=== PATIENT | female | born 1995 | race Caucasian/White ===

== ENCOUNTER 2017-06-14 21:21 | Inpatient (IN) ==
[2017-06-14] MEDS ORDERED: MEPERIDINE 50 MG/1 ML VIAL IV PRN (21:30)
[2017-06-14] MEDS ORDERED: ONDANSETRON 4 MG/2 ML VIAL IV PRN (21:30)
[2017-06-14] MEDS ORDERED: BUTORPHANOL 2 MG/ML VIAL IV PRN (21:30)
[2017-06-14] MEDS ORDERED: LACTATED RINGERS 500 ML IV PRN (21:30)
[2017-06-14 22:28] LABS: Basophils % 0.2 % (0.0-0.8); Eosinophils # 0.1 10*3/uL (0.0-0.87); Eosinophils % 1.1 % (0.00-10.9); Hematocrit 34.4 VOL% (35.7-47.0); Hemoglobin 11.3 GM/DL (12.0-16.0); Immature Granulocytes % 0.9 %; Immature Granulocytes Absolute 0.09 #; Lymphocytes # 1.9 10*3/uL (1.4-4.0); Lymphocytes % 19.8 % (21.3-54.2); Mean Corpuscular HGB Conc 32.8 GM/DL (32-36); Mean Corpuscular Hemoglobin 28 PG (27-34); Mean Corpuscular Volume 85.1 FL (87-102); Monocytes # 0.7 10*3/uL (0.11-0.8); Monocytes % 6.9 % (1.7-12.7); Neutrophils # 6.8 10*3/uL (1.4-7.4); Neutrophils % 71.1 % (38.7-73.9); Platelet Count 104 T/CUMM (130-400); Red Blood Count 4.04 MC/CUMM (3.8-5.5); Red Cell Distribution Width 14.4 % (9.3-17.3); White Blood Count 9.5 T/CUMM (4-12)
[2017-06-14 22:46] LABS: Alanine Aminotransferase 17 U/L (13-56); Albumin 2.7 G/DL (3.4-5.0); Alkaline Phosphatase 234 U/L (45-117); Aspartate Amino Transferase 24 U/L (0-37); Bilirubin,Total < 0.39 MG/DL (0.2-1.0); Blood Urea Nitrogen 17 MG/DL (7-18); Calcium 8.6 MG/DL (8.5-10.1); Glucose 86 MG/DL (74-106); Osmolality,Calculated 275.7 MOS/KG (273-304); Potassium 3.9 MMOL/L (3.5-5.1); Sodium 138 MMOL/L (136-145); Total Protein 6.4 G/DL (6.4-8.3)
[2017-06-14 23:19] LABS: Giant Platelets Few; Hypochromasia Slight; Platelet Estimate Adequate
[2017-06-15] MEDS: LACTATED RINGERS 1,000 ML IV SCH ×3 (00:18→14:37)
[2017-06-15] MEDS ORDERED: CLINDAMYCIN INJ 900 MG in PREMIX 1 EACH IV SCH (08:00)
[2017-06-15] MEDS ORDERED: OXYTOCIN/LR 20 UNIT/1,000 ML BAG IV SCH (12:30)
[2017-06-15] MEDS ORDERED: CITRIC ACID/SODIUM CITRATE 30 ML UDCUP PO ONE (12:52)
[2017-06-15] MEDS ORDERED: PROMETHAZINE 25 MG/1 ML VIAL IM ONE (12:52)
[2017-06-15] MEDS ORDERED: ePHEDrine 50 MG/ML AMP IV PRN (12:52)
[2017-06-15] MEDS ORDERED: diphenhydrAMINE 50 MG/1 ML VIAL IV PRN (12:52)
[2017-06-15] MEDS ORDERED: FAMOTIDINE 20 MG/2 ML VIAL IV ONE (12:52)
[2017-06-15] MEDS ORDERED: fentaNYL 2 MCG/ROPIV 0.2% EPID 150 ML EPIDURAL SCH (13:00)
[2017-06-15 16:12] LABS: Apearance,Urine CLEAR (Clear); Bilirubin,Urine Negative (Negative); Blood, Urine Moderate mg/dL (Negative); Glucose,Urine (UA) Negative (Negative); Ketones,Urine Negative (Negative); Nitrite,Urine Negative (Negative); Protein,Urine Negative; RBC,Urine 6 /HPF (0-4); Urine Color Yellow (Yellow); Urine Specific Gravity 1.009 (1.001-1.035); Urine Urobilinogen < 2.0 EU/DL (0.2-1.0); WBC,Urine 1 /HPF (0-6)
[2017-06-15] MEDS ORDERED: METHYLERGONOVINE 0.2 MG/1 ML AMP ONE (19:41)
[2017-06-15] MEDS ORDERED: miSOPROStol 200 MCG TABLET ONE (19:41)
[2017-06-15] MEDS ORDERED: LIDOCAINE 1% 50 ML VIAL ONE (19:41)
[2017-06-15] MEDS ORDERED: DIPH/TET/ACEL PERT BOOSTER VACCINE 0.5 ML VIAL IM ONE (22:38)
[2017-06-15] MEDS ORDERED: BISACODYL 10 MG SUPP RECTAL PRN (22:38)
[2017-06-15] MEDS ORDERED: MEASLES/MUMPS/RUBELLA VACCINE 0.5 ML VIAL SUBCUT ONE (22:38)
[2017-06-15] MEDS ORDERED: ACETAMINOPHEN 325 MG TABLET PO PRN (22:38)
[2017-06-15] MEDS ORDERED: ONDANSETRON 4 MG/2 ML VIAL IV PRN (22:38)
[2017-06-15] MEDS ORDERED: LANOLIN 50% CREAM 0.3 OZ TUBE TOP PRN (22:38)
[2017-06-15] MEDS ORDERED: oxyCODONE/ACETAMINOPHEN 5-325 MG TABLET PO PRN ×2 (22:38)
[2017-06-15] MEDS ORDERED: OXYTOCIN/LR 20 UNIT/1,000 ML BAG IV ONE (22:38)
[2017-06-15] MEDS ORDERED: WITCH HAZEL PADS 100/JAR TOP PRN (22:38)
[2017-06-15] MEDS ORDERED: HYDROCORTISONE 2.5% RECTAL CREAM 30 GM TUBE TOP PRN (22:38)
[2017-06-15] MEDS ORDERED: BENZOCAINE 20%/MENTHOL 0.5% SPRAY 56 GM CAN TOP PRN (22:38)
[2017-06-15] MEDS ORDERED: RHO(D) IMMUNE GLOBULIN 300 MCG SYRINGE IM ONE (22:38)
[2017-06-16 05:53] LABS: Basophils % 0.1 % (0.0-0.8); Eosinophils % 0.1 % (0.00-10.9); Hematocrit 24.9 VOL% (35.7-47.0); Hemoglobin 8.2 GM/DL (12.0-16.0); Immature Granulocytes % 0.8 %; Immature Granulocytes Absolute 0.14 #; Lymphocytes # 1.5 10*3/uL (1.4-4.0); Lymphocytes % 8.8 % (21.3-54.2); Mean Corpuscular HGB Conc 32.9 GM/DL (32-36); Mean Corpuscular Hemoglobin 28 PG (27-34); Mean Corpuscular Volume 85.6 FL (87-102); Mean Platelet Volume 13.9 FL (9.6-12.0); Monocytes # 0.9 10*3/uL (0.11-0.8); Monocytes % 5.4 % (1.7-12.7); Neutrophils # 14.1 10*3/uL (1.4-7.4); Neutrophils % 84.8 % (38.7-73.9); Platelet Count 89 T/CUMM (130-400); Red Blood Count 2.91 MC/CUMM (3.8-5.5); Red Cell Distribution Width 14.6 % (9.3-17.3); White Blood Count 16.6 T/CUMM (4-12)
[2017-06-16 06:10] LABS: Hypochromasia 1+; Microcytosis 1+; Platelet Estimate Decreased
[2017-06-16] MEDS: IBUPROFEN 800 MG TABLET PO PRN ×2 (08:09→22:07)
[2017-06-16] MEDS: FERROUS SULFATE 325 MG TABLET PO SCH ×2 (08:09→22:05)
[2017-06-16] MEDS: MULTIVITAMIN (PRENATAL) TABLET PO SCH (08:09)
[2017-06-16] MEDS: DOCUSATE SODIUM 100 MG CAPSULE PO SCH ×2 (08:09→22:05)
[2017-06-17 07:14] VITALS: BP 111/62
[2017-06-17] MEDS: FERROUS SULFATE 325 MG TABLET PO SCH (09:06)
[2017-06-17] MEDS: DOCUSATE SODIUM 100 MG CAPSULE PO SCH (09:06)
[2017-06-17] MEDS: MULTIVITAMIN (PRENATAL) TABLET PO SCH (09:06)
[2017-06-17] MEDS: IBUPROFEN 800 MG TABLET PO PRN (09:08)
== END 2017-06-17 11:30 | disposition home or self-care (01) | DRG 560 ==
LOC: N.LDOUT 21:21 → N.LD 21:23 → N.OB 06-16 00:25
PROVIDERS: ADMIT Specialist; ATTEND Specialist